=== PATIENT | female | born 1960 | race American Indian/Alaskan Native ===

== ENCOUNTER 2017-06-14 15:34 | Emergency (ER) | payer OTHER ==
[2017-06-14 15:48] VITALS: BP 131/94
[2017-06-14] MEDS ORDERED: DUONEB *Not for PRN Use IH ONE (16:10)
[2017-06-14] MEDS ORDERED: DELTASONE PO ONE (16:10)
--- NOTE | 2017-06-14 16:13 | Emergency Department Report ---
Chief Complaint: Dyspnea/Respdistress Stated Complaint: DIFFICULTY BREATHING Time Seen by Provider: 06/14/17 16:12 - HPI History of Present Illness: pt is a 56 y/o aaf with hx of copd who presents for sob not improving with albuterol nebs at home symptoms worsening over past 3 days. there is no cp no dizziness no n/v - Exam Vital Signs: Vital Signs 06/14/17 15:45 Temperature 97.6 F Pulse Rate 84 Respiratory 18 Rate Blood Pressure 131/94 O2 Sat by Pulse 94 Oximetry MSE screening note: Focused history and physical exam performed. Due to findings the following was ordered: ED Disposition for MSE Condition: Stable
[2017-06-14 17:19] LABS: Basophils % (Auto) 1.5 % (0.0-1.8); Eosinophils % (Auto) 3.1 % (0.0-4.3); Hematocrit 38.5 % (30.3-42.9); Hemoglobin 12.1 gm/dl (10.1-14.3); Mean Corpuscular HGB Conc 31 % (30-34); Mean Corpuscular Volume 72 fl (79-97); Platelet Count 278 K/mm3 (140-440); Red Blood Count 5.33 M/mm3 (3.65-5.03); Red Cell Distribution Width 16.4 % (13.2-15.2); White Blood Count 5.4 K/mm3 (4.5-11.0)
[2017-06-14 17:22] LABS: Alanine Aminotransferase 15 units/L (7-56); Albumin 4.5 g/dL (3.9-5); Albumin/Globulin Ratio 1.6 %; Alkaline Phosphatase 67 units/L (35-129); Anion Gap 21 mmol/L; BUN/Creatinine Ratio 11; Blood Urea Nitrogen 8 mg/dL (7-17); Calcium 9.4 mg/dL (8.4-10.2); Carbon Dioxide 23 mmol/L (22-30); Chloride 102.1 mmol/L (98-107); Glucose 79 mg/dL (65-100); Potassium 3.7 mmol/L (3.6-5.0); Sodium 142 mmol/L (137-145); Total Protein 7.4 g/dL (6.3-8.2)
[2017-06-14 17:23] LABS: Mean Corpuscular Hemoglobin 23 pg (28-32)
--- NOTE | 2017-06-14 19:53 | XRay Report ---
FINAL REPORT EXAM: XR CHEST ROUTINE 2V HISTORY: sob TECHNIQUE: Two view chest PA and lateral PRIORS: None. FINDINGS: Cardiac and mediastinal contours are unremarkable. No focal pulmonary infiltrate is identified. No pleural fluid collection seen. Pulmonary vasculature is unremarkable. IMPRESSION: Negative two-view chest
== END 2017-06-15 06:49 | disposition left against medical advice (07) ==
LOC: ED 15:34
DX: R06.09 Other forms of dyspnea (principal); Z53.21 Procedure and treatment not carried out due to patient leaving prior to being seen by health care provider
CPT/HCPCS: 36415; 71020; 80053; 85025